=== PATIENT | male | born 1985 | race Hispanic/Latino ===

== ENCOUNTER 2017-05-02 23:24 | Emergency (ER) | payer SELFPAY ==
[~2017-05-02] VITALS: Ht 167.6 cm; Wt 98.0 kg
[2017-05-02] MEDS ORDERED: NAPROXEN375 MG PO (23:35)
[2017-05-03] MEDS ORDERED: PROTONIX40 MG PO (00:31)
== END 2017-05-03 01:37 | disposition home or self-care (01) ==
LOC: ED 23:24
DX: R10.32 Left lower quadrant pain (principal); R10.12 Left upper quadrant pain; R19.7 Diarrhea, unspecified; Z87.891 Personal history of nicotine dependence; Z88.2 Allergy status to sulfonamides
CPT/HCPCS: 80053; 81001; 83690; 85025; 99283